=== PATIENT | female | born 2000 | race Two or more races ===

== ENCOUNTER 2022-07-01 05:11 | Emergency (ER) | payer OTHER ==
[~2022-07-01] VITALS: Ht 167.6 cm; Wt 86.4 kg
[2022-07-01 05:34] VITALS: BP 93/58
== END 2022-07-01 05:53 | disposition left against medical advice (07) ==
LOC: EMS 05:13
DX: Z53.21 Procedure and treatment not carried out due to patient leaving prior to being seen by health care provider (principal)
CPT/HCPCS: 99281; Z7502